=== PATIENT | male | born 1940 | race Caucasian/White ===

== ENCOUNTER → 2017-07-07 | Outpatient (CLI) | payer OTHER | LOC: BMCIMAGING 12:21 | PROVIDERS: ATTEND Allergy & Immunology Allergy | DX: Z13.83 Encounter for screening for respiratory disorder NEC (principal) ==

== ENCOUNTER → 2017-07-26 | Outpatient (CLI) | payer OTHER | LOC: CIMAGING 10:57 | PROVIDERS: ATTEND Allergy & Immunology Allergy | DX: J42 Unspecified chronic bronchitis (principal); I25.10 Atherosclerotic heart disease of native coronary artery without angina pectoris; K44.9 Diaphragmatic hernia without obstruction or gangrene; N28.1 Cyst of kidney, acquired; M47.814 Spondylosis without myelopathy or radiculopathy, thoracic region | CPT/HCPCS: 71250-PO ==

== ENCOUNTER 2017-09-15 12:52 | Day surgery (SDC) | payer OTHER ==
[2017-09-15 13:12] VITALS: RESP 16; TEMP 97.5
[2017-09-15] MEDS ORDERED: NS 500 ML IV ONE (13:27)
[2017-09-15] MEDS ORDERED: LIDOCAINE 1% 2 ML INJ ID PRN (13:27)
[2017-09-15] MEDS ORDERED: ALBUTEROL 3 ML DEYVIAL ONE (13:36)
[2017-09-15] MEDS ORDERED: LIDOCAINE 2% JELLY 5 ML TUBE ONE (13:37)
[2017-09-15] MEDS ORDERED: LIDOCAINE 1% 300 MG/30 ML SDV ONE (13:37)
[2017-09-15] MEDS ORDERED: BENZOCAINE UNIT DOSE SPRAY HURRICAINE MM ONE (13:43)
[2017-09-15] MEDS ORDERED: fentaNYL 100 MCG/2 ML INJ ONE (14:10)
[2017-09-15] MEDS ORDERED: MIDAZOLAM 2 MG/2 ML VIAL ONE ×2 (14:10→14:11)
--- NOTE | 2017-09-15 14:17 | PDPROPOC ---
Sedation Plan of Care Sedation Plan of Care: vital signs stable, mental status noted, patient educated of risks, benefits, alternatives, patient can tolerate sedation ASA Classification: ASA 1 Planned drugs: fentanyl, midazolam Mallampati Score: Class 1 Mallampati Reference Image: Patient passed 3-3-2 rule?: Yes
[2017-09-15] MEDS ORDERED: fentaNYL 100 MCG/2 ML INJ IVP ONE (14:46)
[2017-09-15] MEDS ORDERED: MIDAZOLAM 2 MG/2 ML VIAL IVP ONE (14:47)
[2017-09-15 14:56] VITALS: BP 133/75; PULSE 78; O2SAT 91
--- NOTE | 2017-09-15 15:00 | PDHPUP ---
History & Physical Update H&P update statement: This history and physical update is based on an assessment of the patient which was completed after admission or registration (within 24 hours), but prior to the surgery/procedure. H&P update: H&P reviewed & patient examined, no change in patient's condition since H&P completed (For bronchoscopy to evaluate right upper lobe area.)
--- NOTE | 2017-09-15 15:34 | GPN ---
[f rep st] PROCEDURE NOTE DATE OF PROCEDURE: 09/15/2017 PROCEDURE: Bronchoscopy. REASON FOR PROCEDURE: Evaluate right upper lobe in a patient with cough and chest discomfort coming from that area. DESCRIPTION OF PROCEDURE: The procedure was done in the endoscopy unit. Informed consent was obtain ed from the patient. N-95 masks were worn despite there being no risk of airborne infectious respira tory pathogens. Appropriate time-out was performed. Topical anesthesia included a small amount of H urricaine spray and 5 cc of 4% lidocaine to the posterior oropharynx, and approximately 15 cc of 1% l idocaine to the lower tracheobronchial tree. Conscious sedation included 4 mg of IV Versed and 100 m cg of IV fentanyl. The fiberoptic bronchoscope was passed via bite block orally into the larynx. The vocal cords were i dentified. These were normal and moved normally with cough and respiration. Bronchoscope was then a dvanced into the trachea and into the lower tracheobronchial tree bilaterally. There was a small jase unt of whitish secretions in the trachea. The bronchoscope was then advanced into the lower tracheob ronchial tree. All areas were observed to at least the segmental level. The right upper lobe was ob served beyond the first subsegmental level. Anatomy was normal regarding the right upper lobe, bronc hus intermedius, and right mainstem bronchus. There were no lesions. There was no evidence of extri nsic compression. There were no secretions. There was no erythema and no edema. The right lower lo be and middle lobe were normal, and the left side was normal. Bronchial washings were taken from the right upper lobe area. Aerobic cultures were sent. There were no complications. The patient tolerated the procedure well. Vital signs and oxygen satur ations on supplemental oxygen remained normal throughout the procedure. IMPRESSION: Normal endobronchial anatomy, including the anatomy of the right upper lobe area. There were no endobronchial lesions, no endobronchial abnormalities, and no evidence of extrinsic compress ion. This was a normal bronchoscopy. /[id number]/MODL
== END 2017-09-15 15:15 | disposition home or self-care, planned readmission (81) ==
LOC: FSGY 12:52
PROVIDERS: ATTEND Internal Medicine Pulmonary Disease
PROC: 0B948ZX Drainage of Right Upper Lobe Bronchus, Via Natural or Artificial Opening Endoscopic, Diagnostic (ICD-10-PCS; principal; 2017-09-15 14:00)
DX: J44.9 Chronic obstructive pulmonary disease, unspecified (principal); J45.909 Unspecified asthma, uncomplicated; R07.89 Other chest pain; K21.9 Gastro-esophageal reflux disease without esophagitis; Z95.1 Presence of aortocoronary bypass graft; Z79.52 Long term (current) use of systemic steroids
CPT/HCPCS: J2250; J3010

== ENCOUNTER → 2018-01-10 | Outpatient (CLI) | payer OTHER | LOC: BMCIMAGING 07:17 | PROVIDERS: ATTEND Urology | DX: N40.1 Benign prostatic hyperplasia with lower urinary tract symptoms (principal) ==

== ENCOUNTER → 2018-01-25 | Outpatient (CLI) | payer OTHER | LOC: BMCIMAGING 09:01 | PROVIDERS: ATTEND Urology | DX: N40.1 Benign prostatic hyperplasia with lower urinary tract symptoms (principal) ==

== ENCOUNTER → 2018-03-28 | Outpatient (CLI) | payer OTHER | LOC: BHFA 15:15 | PROVIDERS: ATTEND Nurse Practitioner Adult Health | DX: I25.10 Atherosclerotic heart disease of native coronary artery without angina pectoris (principal); R53.82 Chronic fatigue, unspecified ==

== ENCOUNTER → 2018-04-06 | Outpatient (CLI) | payer OTHER | LOC: BHFA 09:00 | PROVIDERS: ATTEND Internal Medicine Cardiovascular Disease | DX: I25.10 Atherosclerotic heart disease of native coronary artery without angina pectoris (principal); R53.82 Chronic fatigue, unspecified | CPT/HCPCS: 78452; 93017; A9500 ==

== ENCOUNTER → 2018-04-10 | Outpatient (CLI) | payer OTHER | LOC: BMCIMAGING 12:46 | PROVIDERS: ATTEND Urology | DX: N28.1 Cyst of kidney, acquired (principal); N28.9 Disorder of kidney and ureter, unspecified; N40.0 Benign prostatic hyperplasia without lower urinary tract symptoms ==

== ENCOUNTER 2018-09-22 08:34 | Emergency (ER) | payer OTHER ==
--- NOTE | 2018-09-22 08:42 | EDPHY ---
H & P Time Seen by Provider: 09/22/18 08:41 HPI/ROS: CHIEF COMPLAINT: Shortness of breath on exertion HISTORY OF PRESENT ILLNESS: Patient had bypass surgery in 2010 which was diagnosed he tells me after cardiac investigation was started with tamponade due to his colitis. He never had anginal symptoms. He last had a catheterization in 2014. He tells me his last stress test was this spring with [facility]. Patient tells me that over the past month he has had 3 episodes of dyspnea on exertion the last episode was pretty severe yesterday around 4:00 p.m.. He lives up at [facility] and normally walks the road without difficulty but yesterday had to stop because of severe shortness of breath after about 200 yd. Resolved immediately and then he walked another 300 yd in the symptoms reoccurred. He was eventually able to make it back home. This was associated with just being very fatigued and tired but no chest pain and no cough or leg swelling. Symptoms yesterday were severe. Currently he is not short of breath. He was able to go to the [employer] exercise last without symptoms, and on Monday he was able to walk up the hill without any symptoms. Today he is walking without any symptoms as well. REVIEW OF SYSTEMS: Eye: no change in vision ENT: Patient uses [facility] and has been not rinsing his mouth afterwards and has had a sore mouth for about 1 week. He said it was painful to eat or drink mostly because sides of his tongue were sore, better today but still painful Cardiac: HPI no chest pain or syncope Pulmonary: HPI Abdomen: no vomiting, diarrhea, abdominal pain Musculoskeletal: No leg swelling. Skin: no rash Neuro: no headache Constitutional: no fever : No symptoms. History of generalized anxiety after his surgery on Klonopin. He does have some recent increase in fatigue. A comprehensive 10 point review of systems is otherwise negative aside from elements mentioned in the history of present illness. PAST MEDICAL HISTORY: Cardiac bypass with catheterization in 2014 showing stable graft. Colitis. Previous back surgery. Bilateral knee replacements, hypercholesterolemia. Social history: Recent travel to [place] for his ceisag-uc-lzh's , increased stress with a recent injury to his when they were on the [facility] for a camping trip General Appearance: Alert and conversant, cooperative. Eyes: No scleral icterus. ENT, Mouth: Patient has a little bit of white discoloration on the both sides of his tongue but is pharynx is normal, no trismus, no stridor or drooling. No dental pain or gum swelling. Slight white plaque on roof of his mouth in the soft palate. Respiratory: Normal respiratory effort, breath sounds equal, lungs are clear to auscultation. No rales or rhonchi. Cardiovascular: Regular rate and rhythm. Gastrointestinal: Abdomen is soft and non tender. Neurological: Alert, face symmetric, normal motor and sensory in extremities. Skin: Warm and dry, no rashes. Musculoskeletal: No peripheral edema. No calf tenderness. Psychiatric: Not agitated. Emergency Department course/MDM: Patient is worried about thrush which certainly is possible. Does not look like he has any airway compromise. Shortness of breath could be cardiac. Workup including EKG chest x-ray D-dimer and troponin. 945: D-dimer elevated greater than 0.1 times age, plan for CT angiography discussed and consented. 1050: CTA negative per Dr. Carrington, no PE or infiltrate. 1105: Results and disposition discussed with the patient. I told him I recommended admission for further evaluation of whether his dyspnea on exertion could be an anginal equivalent. The patient tells me that he would prefer to go home and he states he understands the risks of leaving including but not limited to heart attack, cardiac arrest, permanent disability or . Says he feels fine and feels that he has been able to hike recently and exercise last without any symptoms and wants to wait to talk to his primary payroll accounting clerk. He clearly has capacity to make decisions regarding his care. He would like to be treated for his thrush with nystatin as he has a history of steroid inhaler use, feels this is similar to previous episodes, low risk treatment. Does not have dramatic intraoral findings but I think this is reasonable. Smoking Status: Never smoked Constitutional: Initial Vital Signs Temperature (C) 36.4 C 09/22/18 08:38 Heart Rate 73 09/22/18 08:38 Respiratory Rate 18 09/22/18 08:38 Blood Pressure 149/94 H 09/22/18 08:38 O2 Sat (%) 95 09/22/18 08:38 O2 Delivery Mode Room Air Allergies/Adverse Reactions: ibuprofen Allergy (Intermediate, Verified 09/22/18 08:36) Colitis atorvastatin calcium [From Lipitor] Allergy (Verified 09/22/18 08:36) messes up kidney function cephalexin monohydrate [From Keflex] Allergy (Verified 09/22/18 08:36) Rash Pgyfklo-Jmc-Hwv Reductase Inhibitor Allergy (Verified 09/22/18 08:36) messes up kidney function citris Allergy (Uncoded 09/07/17 11:45) bothers digestive track Home Medications: Medication Instructions Recorded Sildenafil Citrate [Viagra] 12/26/11 Albuterol [Proventil Inhaler] 12/28/11 Qvar 12/28/11 KLONOPIN 08/11/13 Lansoprazole [Prevacid] 10/14/14 Aspirin 81mg (*) 09/07/17 Finasteride 09/07/17 Herbals/Supplements -Info Only 09/07/17 Nasacort 09/07/17 Nystatin Susp [Mycostatin Oral 10 ml MM Q12 PRN #100 ml 09/22/18 Liquid] Medical Decision Making - Diagnostics EKG Interpretation: 12-lead EKG interpreted by me; official reading is in computer system. My interpretation is sinus rhythm rate 70 with right bundle branch block. No acute ST changes. Imaging Results: Imaging Impressions Chest X-Ray 09/22/18 09:05 Impression: 1. Chronic bronchitis/airways disease. 2. No focal pneumonia, congestive heart failure, or pleural effusion. Chest/Thorax CTA 09/22/18 09:48 Impression: 1. No definite pulmonary thromboemboli. 2. Small hiatal hernia. 3. Mild chronic bronchitis without evidence of pneumonia, pleural effusion or pneumothorax. Findings and recommendations discussed with Emergency Department physician, Ab Diaz at 1040 hour, 09/22/2018. Final report concurs with initial preliminary interpretation. Chest x-ray personally interpreted shows sternal wires but no reason for acute dyspnea on exertion, no CHF or pneumonia seen. Imaging: I viewed and interpreted images myself Differential Diagnosis: Differential diagnosis considered for shortness of breath including but not limited to pulmonary infectious process, COPD, asthma, pulmonary embolus and congestive heart failure. - Data Points Laboratory Results: Laboratory Results 09/22/18 09:15 09/22/18 09:15 09/22/18 09/22/18 09/22/18 09:18 09:15 09:15 WBC RBC Hgb Hct MCV MCH MCHC RDW Plt Count MPV Neut % (Auto) Lymph % (Auto) [place] % (Auto) Eos % (Auto) Baso % (Auto) Nucleat RBC Rel Count Absolute Neuts (auto) Absolute Lymphs (auto) Absolute Monos (auto) Absolute Eos (auto) Absolute Basos (auto) Absolute Nucleated RBC Immature Gran % Immature Gran # D-Dimer 0.88 ug/mLFEU H ug/mLFEU (0.00-0.50) Sodium 141 mEq/L mEq/L (135-145) Potassium 4.2 mEq/L mEq/L (3.3-5.0) Chloride 110 mEq/L mEq/L (97-110) Carbon Dioxide 23 mEq/l mEq/l (22-31) Anion Gap 8 mEq/L mEq/L (6-14) BUN 19 mg/dL mg/dL (7-23) Creatinine 1.0 mg/dL mg/dL (0.7-1.3) Estimated GFR > 60 Glucose 147 mg/dL H mg/dL (70-100) Calcium 9.2 mg/dL mg/dL (8.5-10.4) POC Troponin I 0.00 ng/mL ng/mL (0.00-0.08) 09/22/18 09:15 WBC 5.87 10^3/uL 10^3/uL (3.80-9.50) RBC 4.72 10^6/uL 10^6/uL (4.40-6.38) Hgb 15.7 g/dL g/dL (13.7-17.5) Hct 45.4 % % (40.0-51.0) MCV 96.2 fL fL (81.5-99.8) MCH 33.3 pg pg (27.9-34.1) MCHC 34.6 g/dL g/dL (32.4-36.7) RDW 13.2 % % (11.5-15.2) Plt Count 161 10^3/uL 10^3/uL (150-400) MPV 9.8 fL fL (8.7-11.7) Neut % (Auto) 68.2 % % (39.3-74.2) Lymph % (Auto) 20.8 % % (15.0-45.0) [place] % (Auto) 8.7 % % (4.5-13.0) Eos % (Auto) 1.7 % % (0.6-7.6) Baso % (Auto) 0.3 % % (0.3-1.7) Nucleat RBC Rel Count 0.0 % % (0.0-0.2) Absolute Neuts (auto) 4.00 10^3/uL 10^3/uL (1.70-6.50) Absolute Lymphs (auto) 1.22 10^3/uL 10^3/uL (1.00-3.00) Absolute Monos (auto) 0.51 10^3/uL 10^3/uL (0.30-0.80) Absolute Eos (auto) 0.10 10^3/uL 10^3/uL (0.03-0.40) Absolute Basos (auto) 0.02 10^3/uL 10^3/uL (0.02-0.10) Absolute Nucleated RBC 0.00 10^3/uL 10^3/uL (0-0.01) Immature Gran % 0.3 % % (0.0-1.1) Immature Gran # 0.02 10^3/uL 10^3/uL (0.00-0.10) D-Dimer Sodium Potassium Chloride Carbon Dioxide Anion Gap BUN Creatinine Estimated GFR Glucose Calcium POC Troponin I Point of Care Test Results: Chemistry 09/22/18 09:18 POC Troponin I 0.00 ng/mL ng/mL (0.00-0.08) Departure - Departure Disposition: Home, Routine, Self-Care Clinical Impression: Thrush, Dyspnea on effort Condition: Good Instructions: Nystatin (By mouth) Additional Instructions: Call your payroll accounting clerk on Monday for office follow-up in the next 2-3 days. Please return right away if you get chest pain or shortness of breath. Referrals: Mercy Collins MD [Primary Care Provider] - As per Instructions Salty Lynn MD [Medical Doctor] - As per Instructions Prescriptions: Nystatin Susp [Mycostatin Oral Liquid] 10 ml MM Q12 PRN #100 ml PRN Reason: mouth pain
--- NOTE | 2018-09-22 09:16 | CPEKG ---
Test Reason : OPEN Blood Pressure : / mmHG Vent. Rate : 070 BPM Atrial Rate : 070 BPM P-R Int : 173 ms QRS Dur : 155 ms QT Int : 424 ms P-R-T Axes : 050 018 -08 degrees QTc Int : 458 ms Sinus rhythm Right bundle branch block Confirmed by Ab Diaz ([id number]) on 09/22/2018 9:16:10 AM Referred By: Confirmed By:Ab Diaz
[2018-09-22 09:23] LABS: PLATELET COUNT 161 10^3/uL (150-400)
[2018-09-22] MEDS ORDERED: IOPAMIDOL (ISOVUE 370) 100 ML BTL IV ONE (09:56)
[2018-09-22 11:19] VITALS: BP 124/74
== END 2018-09-22 11:20 | disposition home or self-care (01) ==
DX: B37.9 Candidiasis, unspecified (principal); R06.09 Other forms of dyspnea
CPT/HCPCS: 71046; 71275; 93005; 99285; Q9967; 84484-PO

== ENCOUNTER → 2018-09-25 | Outpatient (CLI) | payer OTHER | LOC: BHFA 11:30 | PROVIDERS: ATTEND Internal Medicine Cardiovascular Disease | DX: I27.20 Pulmonary hypertension, unspecified (principal) ==

== ENCOUNTER → 2018-09-27 | Outpatient (CLI) | payer OTHER | LOC: BHFA 13:00 | PROVIDERS: ATTEND Internal Medicine Cardiovascular Disease | DX: I25.10 Atherosclerotic heart disease of native coronary artery without angina pectoris (principal); R06.02 Shortness of breath | CPT/HCPCS: 78452; 93017; A9500 ==

== ENCOUNTER 2018-10-05 06:57 | Day surgery (SDC) | payer OTHER ==
[2018-10-05] MEDS ORDERED: DIAZEPAM 5 MG TAB PO ONE (07:00)
[2018-10-05] MEDS ORDERED: NS 1,000 ML IV ONE (07:00)
[2018-10-05] MEDS ORDERED: diphenhydrAMINE 25 MG CAP PO ONE ×2 (07:00→07:44)
[2018-10-05] MEDS ORDERED: FAMOTIDINE 20 MG TAB PO ONE (07:00)
[2018-10-05] MEDS ORDERED: DIAZEPAM 5 MG TAB ONE (07:44)
[2018-10-05] MEDS ORDERED: ASPIRIN EC 325 MG TAB PO ONE ×2 (07:44→07:45)
[2018-10-05] MEDS ORDERED: FAMOTIDINE 20 MG TAB ONE (07:44)
[2018-10-05 07:53] LABS: PLATELET COUNT 150 10^3/uL (150-400)
[2018-10-05] MEDS ORDERED: LIDOCAINE 1% 300 MG/30 ML SDV ONE (07:56)
[2018-10-05] MEDS ORDERED: IOPAMIDOL (ISOVUE-370) 150 ML BTL IV ONE (07:57)
[2018-10-05] MEDS ORDERED: MIDAZOLAM 2 MG/2 ML VIAL ONE ×2 (07:57→09:40)
[2018-10-05] MEDS ORDERED: fentaNYL 100 MCG/2 ML INJ ONE ×2 (07:57→09:40)
[2018-10-05 08:03] LABS: PROTIME(PATIENT) 13.4 SEC (12.0-15.0)
--- NOTE | 2018-10-05 08:38 | PDPROPOC ---
Sedation Plan of Care Sedation Plan of Care: vital signs stable, mental status noted, patient educated of risks, benefits, alternatives, patient can tolerate sedation ASA Classification: ASA 2 Planned drugs: fentanyl, midazolam Mallampati Score: Class 2 Mallampati Reference Image: Patient passed 3-3-2 rule?: Yes
--- NOTE | 2018-10-05 08:38 | PDHPUP ---
History & Physical Update H&P update statement: This history and physical update is based on an assessment of the patient which was completed after admission or registration (within 24 hours), but prior to the surgery/procedure. Thom has been experiencing increased exertional fatigue coupled with abnormal nuclear stress with inferior apical ischemia and ST depression with exercise. H&P update: H&P reviewed & patient examined, no change in patient's condition since H&P completed
[2018-10-05] MEDS ORDERED: HEPARIN 10,000 UNIT/10 ML MDV (1,000 UNIT/ML) ONE (09:37)
[2018-10-05] MEDS ORDERED: NITROGLYCERIN 0.4 MG BTL SL PRN (10:35)
[2018-10-05] MEDS ORDERED: OXYCODONE/APAP 5/325 TAB PO PRN (10:35)
[2018-10-05] MEDS ORDERED: ONDANSETRON 4 MG/2 ML VIAL IVP PRN (10:35)
[2018-10-05] MEDS ORDERED: ATROPINE SULFATE 1 MG/10 ML SYR IVP PRN (10:35)
[2018-10-05] MEDS ORDERED: HYDROCODONE/APAP 5/325 TAB PO PRN (10:35)
--- NOTE | 2018-10-05 11:16 | CPIP ---
DATE OF PROCEDURE: 10/05/2018 PROCEDURES PERFORMED: 1. Coronary catheterization. 2. Saphenous vein angiography. 3. Left ventriculogram. 4. Angiography of left internal mammary artery to left anterior descending. 5. Right common femoral artery angiography. INDICATION FOR PROCEDURE: The patient is a pleasant 78-year-old gentleman with a known history of co ronary artery disease with previous 3-vessel CABG in October 2010. The patient has been experiencing some fatigue and exercise intolerance and subsequently underwent an exercise nuclear stress test dem onstrating ST-segment depression and evidence of apical inferior ischemia. In the setting of abnorma l nuclear stress test, symptoms of exercise intolerance, and fatigue, decision was made to pursue lef t heart catheterization. DESCRIPTION OF PROCEDURE: After informed consent was obtained for cardiac catheterization and possib le intervention, the patient was brought to the cardiac catheterization lab where he was prepped and draped in sterile fashion. Using a modified Seldinger technique with micropuncture technique, 6-English catheter was placed into the right common femoral artery without complications. JL4 catheter was used to take images of the l eft coronary anatomy in multiple projections. JL4 catheter was exchanged over a guidewire. A JL4 ca theter was exchanged for initially, a JR4 catheter and was ultimately exchanged for a Miguel right catheter, which was used to cannulate the rincon right coronary artery. Right coronary artery imagin g was obtained in multiple projections. Miguel right catheter was exchanged over a guidewire for the JR4. JR4 catheter was used to cannula te the saphenous vein graft to the OM1 and OM2 the sequential graft, as well as the saphenous vein gr aft to the diagonal branch. The JR4 catheter was exchanged over a guidewire for a PHILLIPS catheter. PHILLIPS catheter was used to cannu late the PHILLIPS to the LAD. Images of the PHILLIPS to LAD were obtained in multiple projections. Of note, a 6-English catheter size was upsized, secondary to tortuosity to allow for better manipulati on of catheters. This went without complications. The PHILLIPS catheter was exchanged over a guidewire for an angled pigtail catheter. The angled pigtail catheter was used to cross the aortic valve. LVEDP was assessed. Left ventriculogram was performed and aortic valve gradient was assessed. Angled pigtail catheter was removed over a guidewire. Right common femoral artery angiography demonstrated appropriate placement of 6-English sheath appropriate for Angio-Seal deployment. MEDICATIONS DURING PROCEDURE: Included heparin 2000 units. FINDINGS: 1. Short left main with mild luminal irregularities within the left main with no flow-limiting steno sis. 2. Left anterior descending has 80% ostial stenosis. There is good retrograde filling from the PHILLIPS to the LAD. LAD is chronically occluded at the level of the first diagonal branch and second septal cemetery manager. This is a chronic total occlusion. 3. Circumflex vessel is a large caliber vessel with evidence of 30% to 40% proximal stenosis. There is 60% mid stenosis. There is good filling from saphenous vein graft to OM1 and OM2. 4. Right coronary artery is a large caliber dominant vessel that bifurcates into a PDA and PLV branc h. There are mild luminal irregularities within the mid RCA. There is a 40% to 50% proximal stenosi s within sub-2 mm PDA branch. 5. Saphenous vein graft to 1st diagonal branch is patent. 6. Saphenous vein sequential graft to OM1 and OM2 is widely patent. 7. PHILLIPS to LAD is patent. Of note, there is a focal stenosis within the distal LAD beyond the anast omosis of the PHILLIPS of approximately 80%. HEMODYNAMICS: 1. LVEF 50% with evidence of inferior wall hypokinesis. 2. LVEDP 21 mmHg. 3. Aortic valve gradient none. CONCLUSION: 1. 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 2. No flow-limiting stenosis within the circumflex vessel. 3. Dominant right coronary artery with no flow-limiting disease amenable to percutaneous coronary in tervention. 4. Patent saphenous vein graft to diagonal 1. 5. Patent saphenous vein graft to obtuse marginal 1 and obtuse marginal 2. 6. Patent left internal mammary artery to left anterior descending. 7. 80% distal left anterior descending stenosis beyond the left internal mammary artery to left ante rior descending graft. PLAN: Recommend optimal medical management. If patient were to fail optimal medical therapy, would consider potential PCI to the distal LAD through the PHILLIPS graft. /[id number]/MODL
[2018-10-05] MEDS ORDERED: CARVEDILOL 3.125 MG TAB PO SCH (18:00)
[2018-10-06] MEDS ORDERED: FUROSEMIDE 20 MG TAB PO SCH (09:00)
--- NOTE | 2018-10-06 18:05 | CPEKG ---
Test Reason : OPEN Blood Pressure : / mmHG Vent. Rate : 062 BPM Atrial Rate : 061 BPM P-R Int : 167 ms QRS Dur : 165 ms QT Int : 435 ms P-R-T Axes : 058 018 -07 degrees QTc Int : 442 ms Sinus rhythm Right bundle branch block Confirmed by Shree Callahan ([id number]) on 10/06/2018 6:04:29 PM Referred By: Confirmed By:Shree Callahan
== END 2018-10-05 15:04 | disposition home or self-care (01) ==
LOC: FCATH 06:57
PROVIDERS: ATTEND Internal Medicine Cardiovascular Disease
DX: I25.10 Atherosclerotic heart disease of native coronary artery without angina pectoris (principal); I25.82 Chronic total occlusion of coronary artery; I25.810 Atherosclerosis of coronary artery bypass graft(s) without angina pectoris; R94.39 Abnormal result of other cardiovascular function study; R53.82 Chronic fatigue, unspecified; R06.02 Shortness of breath; E78.5 Hyperlipidemia, unspecified; I10 Essential (primary) hypertension; G47.30 Sleep apnea, unspecified; Z79.82 Long term (current) use of aspirin; Z95.1 Presence of aortocoronary bypass graft; Z96.653 Presence of artificial knee joint, bilateral
CPT/HCPCS: C1760; J1644; J2250; J3010; Q9967

== ENCOUNTER 2019-03-25 18:26 | Emergency (ER) | payer OTHER | END 2019-03-25 20:23 | disposition home or self-care (01) ==

== ENCOUNTER → 2019-03-26 | Outpatient (CLI) | payer OTHER | LOC: BMCIMAGING 11:58 ==